=== PATIENT | female | born 1995 | race Hispanic/Latino ===

== ENCOUNTER 2024-07-29 18:36 | Emergency (ER) | payer OTHER ==
[~2024-07-29] VITALS: Ht 172.7 cm; Wt 136.1 kg
[2024-07-29 19:43] VITALS: PULSE 94; RESP 18; TEMP 99; O2SAT 99
[2024-07-29] MEDS ORDERED: ULTRAM 50MG50 MG PO (19:49)
[2024-07-29] MEDS ORDERED: HOMATROPAIRE5 ML OS (19:49)
[2024-07-29] MEDS: TETRACAINE HCL 0.5% OPTH SOLN 4 ML BTL OP ONE (19:53)
[2024-07-29] MEDS: FLUORESCEIN SOD(OPTH) 1 MG STRP OP ONE (19:53)
== END 2024-07-29 19:52 | disposition home or self-care (01) ==
LOC: ER 19:08
DX: H57.11 Ocular pain, right eye (principal); H20.9 Unspecified iridocyclitis; H53.8 Other visual disturbances
CPT/HCPCS: 99283